=== PATIENT | female | born 1980 ===

== ENCOUNTER 2024-08-20 05:12 | Day surgery (SDC) | payer OTHER ==
[2024-08-13 11:10] VITALS: BP 105/67
[~2024-08-20] VITALS: Ht 157.5 cm; Wt 61.2 kg
[~2024-08-20 05:12] MED LIST: BUSPIRONE HCL7.5 MG; DIVALPROEX SOD500 M1 PO; DORZOLAMIDE HCL10 ML OPHT; FLEXGEN TABLET1 EAC1; IBU800 MG PO; MAGNESIUM250 M1 PO; PEPCID AC20 MG PO; PRILOSEC OTC20 MG; REFRESH DIGITAL10 ML; VITAMIN D31 ML; ZANAFLEX4 M1 PO; ZINC GLUCONATE100 MG
[2024-08-20] MEDS ORDERED: POVIDONE-IODINE 118 ML BOTT TOP ONE (07:26)
[2024-08-20] MEDS ORDERED: IBU600 MG PO (08:35)
== END 2024-08-20 12:35 | disposition home or self-care (01) ==
LOC: CIR.AMB 05:12
PROVIDERS: ATTEND Obstetrics & Gynecology Gynecology
DX: N84.0 Polyp of corpus uteri (principal)